=== PATIENT | female | born 1965 | race Caucasian/White ===

== ENCOUNTER 2016-11-14 13:19 | Outpatient (CLI) | payer MEDICAID ==
[2014-07-07 05:53] VITALS: BMI 24.5
[~2016-11-14 13:19] MED LIST: HYDROCODONE-APA1 TAB PO
== END 2016-11-14 16:36 ==
LOC: D.MAMMO 13:19
DX: N63 Unspecified lump in breast (principal)

== ENCOUNTER → 2017-02-20 15:08 | Outpatient (CLI) | payer MEDICAID ==
[2014-07-07 05:53] VITALS: BMI 24.5
== END | disposition home or self-care (01) ==
LOC: D.MRI 02-13 11:00
DX: M25.512 Pain in left shoulder (principal)

== ENCOUNTER → 2017-07-10 14:59 | Outpatient (CLI) | payer MEDICAID ==
[2014-07-07 05:53] VITALS: BMI 24.5
== END | disposition home or self-care (01) ==
LOC: D.MRI 07-09 10:30
DX: M25.561 Pain in right knee (principal)

== ENCOUNTER → 2017-11-09 23:45 | Outpatient (CLI) | payer MEDICAID ==
[2014-07-07 05:53] VITALS: BMI 24.5
== END | disposition home or self-care (01) ==
LOC: D.MAMMO 08:30
DX: Z12.31 Encounter for screening mammogram for malignant neoplasm of breast (principal)

== ENCOUNTER 2019-02-14 08:00 | Outpatient (CLI) | payer MEDICAID ==
[2014-07-07 05:53] VITALS: BMI 24.5
== END 2019-02-14 23:59 | disposition home or self-care (01) ==
LOC: D.MAMMO 08:00
PROVIDERS: ATTEND Family Medicine
DX: Z12.31 Encounter for screening mammogram for malignant neoplasm of breast (principal)

== ENCOUNTER 2020-03-26 10:45 | Outpatient (CLI) | payer MEDICAID ==
[2014-07-07 05:53] VITALS: BMI 24.5
== END 2020-03-26 13:00 | disposition home or self-care (01) ==
LOC: D.MAMMO 10:45
PROVIDERS: ATTEND Family Medicine
DX: Z12.31 Encounter for screening mammogram for malignant neoplasm of breast (principal)

== ENCOUNTER 2020-11-30 05:17 | Day surgery (SDC) | payer BC ==
[~2020-11-30] VITALS: Ht 167.6 cm; Wt 65.8 kg
[~2020-11-30 05:17] MED LIST changes: +NP THYROID30 MG PO; +PROMETRIUM200 MG PO
[2020-11-30 06:05] LABS: HEMATOCRIT 36.6 % (36.0-48.0); HEMOGLOBIN 12.1 g/dL (12-16); MCH 29.3 pg (26.0-34.0); MCHC 33.1 g/dL (31.0-37.0); MCV 88.5 fL (80.0-100.0); MEAN PLATELET VOLUME 8.2 fL (7.4-10.4); RBC 4.13 10x6/uL (4.00-5.40); WBC 5.8 10x3/uL (4.8-10.8)
[2020-11-30 06:10] VITALS: BP 100/65; Ht 167.6 cm; Wt 65.8 kg
[2020-11-30 07:46] LABS: CALCIUM 9.1 mg/dL (8.5-10.1); CARBON DIOXIDE 25.3 mmol/L (21.0-32.0); POTASSIUM - SERUM 4.3 mmol/L (3.5-5.1)
--- NOTE | 2020-11-30 11:48 | NUR ---
1040 - PATIENT DISCHARGED TO PRIVATE CAR VIA WHEELCHAIR.
--- NOTE | 2020-12-01 08:20 | OP ---
PATIENT NAME: FRANCISCA WELSH MEDICAL RECORD: [id number] :69 LOCATION:[facility] ADMISSION DATE: SURGEON: RITA CANTU DO DATE OF OPERATION: 11/30/2020 PROCEDURE PERFORMED: Left shoulder arthroscopy with rotator cuff repair, biceps tenodesis, labral debridement, subacromial decompression, distal clavicle excision. PREOPERATIVE DIAGNOSES: Left shoulder superior labrum anterior and posterior tear, full thickness rotator cuff tear, subacromial impingement and acromioclavicular joint arthritis. POSTOPERATIVE DIAGNOSES: Left shoulder superior labrum anterior and posterior tear, full thickness rotator cuff tear, subacromial impingement and acromioclavicular joint arthritis. INDICATIONS: Ms. Welsh is a 55-year-old female who has had left shoulder pain for years, have been injecting her for quite some time. We had an MR arthrogram, I believe back in June or July that showed the above findings. She was tired of dealing with that and wants something done surgically. I informed her of the risks of this including infection, bleeding, damage to nerves or vessels, need for further surgery, retear, nonhealing, rotator cuff tendon repair, continued pain, loss of motion of the shoulder as well. She signed the consent. SURGEON: Rita Cantu DO DESCRIPTION OF PROCEDURE: The patient was given block by Anesthesia in the preoperative area, given 900 mg clindamycin and taken to the operative suite, laid in the right lateral decubitus position with the left shoulder up and sedated and LMA was placed. The left shoulder was prepped and draped in sterile fashion. A timeout was performed. Everyone was in agreement with the correct side, site, patient and procedure. I then inflated the posterior shoulder joint itself through a posterior portal with an 18-gauge spinal needle and inflated the shoulder joint with 60 mL of normal saline. I then established the posterior portal with an 18-gauge spinal needle and 11-blade scalpel. Trocar was then entered into the joint. I then established an anterior portal with an 18-gauge spinal needle and 11-blade scalpel. The trocar then entered in. I then saw the severe SLAP tear, brought in a bur and did a biceps tenotomy at that point and a labral debridement with a coagulation burner. I then also saw severe fraying and slight retraction of the supraspinatus tendon. I debrided it on the articular side. We then checked the subscapularis tendon, that was in good repair. There was nothing of the joint and nothing in the inferior gutter. I went into the subacromial space, established a lateral portal with an 18-gauge spinal needle and 11-blade scalpel. The trocar brought in. I then did a subacromial decompression with acromioplasty. Then did anterior portal, distal clavicle excision, open the AC joint approximately 7 mm. The bursal-sided tear was indeed full thickness and opened up. Then, the lateral incision and made careful dissection down with [employer]'s. To these rotator cuff tendon tear, we placed a medial row anchor into the rotator cuff tendon with 4 suture tapes and brought it over to a lateral row anchor, marked a nice repair. I then put on a larger Regeneten implant and stapled in place. I then went to the anterior humerus and made a small incision. I dissected out the long head biceps tendon and put a unicortical hole in the humerus and put a 2.9 OPERATIVE REPORT [id number] FRANCISCA WELSH lock biceps tenodesis anchor and then put the tendon through the loop of the anchor and cinched it down to the humerus while holding traction, I then cut the loop put a free needle on the excess suture went back through the tendon twice and tied it down and cut the excess tendon and suture were then irrigated. Akash Fonseca, certified master safe technician then closed the portal sites with 4-0 Monocryl in inverted interrupted fashion. The open site with 2-0 Vicryl in inverted fashion, 4-0 Monocryl in the skin and placed Dermabond glue on all of them and then put a Telfa and Tegaderm on the wound. She was awakened, placed in a sling, taken to recovery in stable condition. ESTIMATED BLOOD LOSS: Minimal. COMPLICATION: None. TRANSINT:[id number] Voice Confirmation ID: [id number] DOCUMENT ID: [id number] RITA CANTU DO at 0820 CC: [id number] DICTATION DATE: 11/30/20 173 TICKET WORKER: 11/30/20 2147 [facility] 11/30/20 [facility] [address] [facility] [place] [address]
== END 2020-11-30 10:40 | disposition home or self-care (01) ==
LOC: D.OPS 05:17
PROVIDERS: Anesthesiology; ATTEND Orthopaedic Surgery
DX: M75.122 Complete rotator cuff tear or rupture of left shoulder, not specified as traumatic (principal); M75.42 Impingement syndrome of left shoulder; M13.812 Other specified arthritis, left shoulder; M25.512 Pain in left shoulder